=== PATIENT | female | born 1960 | race Two or more races ===

== ENCOUNTER 2022-01-12 10:22 | Emergency (ER) | payer OTHER ==
[2022-01-12 10:40] VITALS: BP 136/79; PULSE 80; TEMP 97.9; BMI 24.7
[2022-01-12] MEDS ORDERED: diazePAM 2 MG TABLET PO ONE (11:54)
[2022-01-12] MEDS ORDERED: SODIUM CHLORIDE 0.9% 500 ML INFUS.BAG IV ONE (11:54)
[2022-01-12] MEDS ORDERED: diazePAM 2 MG TABLET ONE (12:01)
[2022-01-12 12:37] LABS: BASO % 0.6 % (0-2.0); EOS % 0.3 % (0-4.5); HEMOGLOBIN 13.8 GM/dL (10.7-15.3); LYMPH % 23.9 % (8-40); MCH 27.8 pg (25.7-33.7); MCHC 33.6 g/dl (32.0-36.0); MEAN CELL VOLUME 82.7 fl (80-96); MEAN PLT VOLUME 10.4 fl (7.5-11.1); MONO % 6.8 % (3.8-10.2); NEUT % 68.4 % (42.8-82.8); PLATELET COUNT 223 10^3/uL (134-434); RBC 4.96 M/mm3 (3.60-5.2); RDW 13.8 % (11.6-15.6)
[2022-01-12 12:59] LABS: CALCIUM 10.1 mg/dL (8.5-10.1)
[2022-01-12 13:00] LABS: ALBUMIN 4.6 g/dl (3.4-5.0); BLOOD UREA NITROGEN 18.5 mg/dL (7-18)
[2022-01-12 13:03] LABS: CREATININE 0.7 mg/dL (0.55-1.3)
[2022-01-12 13:04] LABS: BILIRUBIN,TOTAL 0.6 mg/dL (0.2-1)
[2022-01-12 13:05] LABS: TOT PROT 8.1 g/dl (6.4-8.2)
[2022-01-12 13:52] LABS: EPI CELLS 1 /uL (0-25.1); HYALINE CASTS 0 /uL (0-3.1); PH,URINE 6.5 (5.0-8.0); URINE APPEARANCE CLEAR; URINE BACTERIA 6 /uL (0-1359); URINE BILIRUBIN NEGATIVE (NEGATIVE); URINE COLOR YELLOW; URINE GLUCOSE (UA) NEGATIVE (NEGATIVE); URINE KETONE NEGATIVE (NEGATIVE); URINE LEUK ESTERASE TRACE (NEGATIVE); URINE NITRITE NEGATIVE (NEGATIVE); URINE PROTEIN NEGATIVE (NEGATIVE); URINE RBC 2 /uL (0-23.9); URINE UROBILINOGEN 0.2 mg/dL (0.2-1.0); URINE WBC 5 /uL (0-25.8)
== END 2022-01-12 17:06 | disposition home or self-care (01) ==
LOC: JER 10:22
DX: R10.31 Right lower quadrant pain (principal); M54.50 Low back pain, unspecified
CPT/HCPCS: 36415; 71046-TC-FY; 74177-TC; 80053; 81003; 83690; 84484; 85025; 87086; 93005; 93010; 99285-25; Q9967

== ENCOUNTER 2022-01-14 09:44 | Emergency (ER) | payer OTHER ==
[2022-01-14 09:59] VITALS: BP 133/80; PULSE 71; TEMP 98.1; BMI 26.4
== END 2022-01-14 11:17 | disposition home or self-care (01) ==
LOC: JER 09:44
DX: M25.551 Pain in right hip (principal)
CPT/HCPCS: 99282-25